=== PATIENT | female | born 1955 | race Caucasian/White ===

== ENCOUNTER → 2016-11-08 | Outpatient (CLI) | payer BC | LOC: MC.RAD 08:20 | DX: Z12.31 Encounter for screening mammogram for malignant neoplasm of breast (principal) ==

== ENCOUNTER → 2018-07-21 | Outpatient (CLI) | payer BC | LOC: MC.RAD 10:45 | DX: Z12.31 Encounter for screening mammogram for malignant neoplasm of breast (principal) ==

== ENCOUNTER → 2018-08-27 | Outpatient (CLI) | payer BC ==
[2018-08-27 13:01] LABS: CREATININE, serum 0.91 (0.52-1.25)
== END ==
LOC: COL.LAB 11:40
PROVIDERS: Psychiatry & Neurology Neurology
DX: R53.1 Weakness (principal); R29.2 Abnormal reflex

== ENCOUNTER 2018-09-09 12:20 | Outpatient (CLI) | payer BC ==
[~2018-09-09] VITALS: Ht 162.6 cm; Wt 77.4 kg
[2018-09-09] VITALS (8 sets, daily range): BP systolic 92–136; BP diastolic 53–88; PULSE 81–99; TEMP 98
[~2018-09-09 12:20] MED LIST: ADIPEX-P37.5 MG PO; LIPITOR20 MG PO; PRINZIDE 25 MG-1 TAB PO; SYNTHROID0.137 MG PO; ZANTAC 150MG T150 MG PO; ZYRTEC 10MG10 MG PO
--- NOTE | 2018-09-09 13:35 | NUR ---
Pt to EU cubby per cart s/p LP. Pt resting well.
[2018-09-09 14:03] LABS: GLUCOSE,CSF 61 mg/dL (40-70); TOTAL PROTEIN,CSF 61 mg/dL (15-45)
[2018-09-09 14:09] LABS: CSF APPEARANCE CLEAR; CSF COLOR COLORLESS; CSF POLYMORPHONUCLEAR 0 % (0-6); CSF RBC 1 /mm3 (0-0)
[2018-09-09 14:10] LABS: CSF MONONUCLEAR 100 % (70-100)
--- NOTE | 2018-09-09 15:40 | NUR ---
Pt has ambulated, voided and nelia PO intake s n/v.
--- NOTE | 2018-09-09 16:00 | NUR ---
Pt discharged per w/c by nurse with .
== END 2018-09-09 16:43 | disposition home or self-care (01) ==
LOC: COL.RAD 12:20
PROVIDERS: Psychiatry & Neurology Neurology
DX: G37.9 Demyelinating disease of central nervous system, unspecified (principal)

== ENCOUNTER 2018-12-11 08:45 | Outpatient (RCR) | payer BC | END 2018-12-17 | disposition home or self-care (01) | LOC: WSOT | DX: G35 Multiple sclerosis (principal) ==

== ENCOUNTER 2019-01-20 15:45 | Outpatient (RCR) | payer BC | END 2019-01-21 | disposition home or self-care (01) | LOC: WSC | DX: G35 Multiple sclerosis (principal); R29.898 Other symptoms and signs involving the musculoskeletal system ==

== ENCOUNTER 2019-03-10 12:45 | Outpatient (RCR) | payer BC | END 2019-03-24 | disposition home or self-care (01) | LOC: WSOT | DX: G35 Multiple sclerosis (principal) ==

== ENCOUNTER 2019-05-14 11:15 | Outpatient (RCR) | payer BC | END 2019-08-03 | disposition home or self-care (01) | LOC: WSPT | DX: R53.1 Weakness (principal) ==

== ENCOUNTER 2019-05-20 11:00 | Outpatient (RCR) | payer BC | END 2019-06-24 | LOC: MKS.ESL.OT | DX: M62.81 Muscle weakness (generalized) (principal); G35 Multiple sclerosis ==

== ENCOUNTER → 2019-09-23 | Outpatient (CLI) | payer BC | LOC: COL.RAD 10:27 | DX: S09.90XD Unspecified injury of head, subsequent encounter (principal); W19.XXXA Unspecified fall, initial encounter; R90.82 White matter disease, unspecified ==

== ENCOUNTER 2020-01-31 16:36 | Inpatient (IN) | payer BC ==
[~2020-01-31] VITALS: Ht 160 cm; Wt 71.8 kg
[2020-01-31] MEDS ORDERED: CELEXA 20MG20 MG/TAB PO (17:17)
[2020-01-31] MEDS ORDERED: RANEXA 500MG T500 MG PO (17:18)
[2020-01-31 17:19] LABS: ALBUMIN 4.6 gm/dL (3.5-5.0); BILIRUBIN,TOTAL 0.9 mg/dL (0.0-1.0); CALCIUM 9.6 mg/dL (8.4-10.2); CREATININE, serum 0.8 (0.52-1.25); POTASSIUM 3.7 mmol/L (3.4-5.0); TOTAL PROTEIN 7.2 gm/dL (6.4-8.2)
[2020-01-31] MEDS ORDERED: LIORESAL 1010 MG/TAB PO ×3 (17:19→21:41)
[2020-01-31] MEDS ORDERED: NUEDEXTA 20 MG-1 CAP PO (17:20)
[2020-01-31 17:21] LABS: BASO % 0.3 % (0.0-2.0); EOS % 0.1 % (0-4.0); GRAN # 5.4 (1.4-6.5); GRAN % 62.8 % (42.2-75.2); HEMATOCRIT 39.9 % (37.0-47.0); HEMOGLOBIN 13.6 g/dl (12.5-16.0); LYMPH # 2.6 (1.2-3.4); LYMPH % 30.5 % (20.0-51.0); MEAN CELL VOLUME 89 fl (80.0-100.0); MEAN CORPUSCULAR HEMOGLOBIN 30 pg (27.0-31.0); MEAN CORPUSCULAR HGB CONC 34 g/dl (33.0-37.0); MEAN PLATELET VOLUME 10.4 fl (7.4-10.4); MONO # 0.5 (0.1-0.6); MONO % 6.1 % (1.7-9.3); PLATELET COUNT 317 K/mm3 (130-400); RED BLOOD COUNT 4.47 M/mm3 (4.10-5.30); REDCELL DISTRIBUTION WIDTH-CV 12.4 % (11.5-14.5)
[2020-01-31 18:39] LABS: MUCOUS Present /lpf; PH 5 (5-8); SQUAMOUS EPITHELIAL 0-2 /hpf; URINE APPEARANCE Clear; URINE BACTERIA None Seen /hpf; URINE BILIRUBIN Positive (NEGATIVE); URINE BLOOD Negative (NEGATIVE); URINE COLOR Amber; URINE GLUCOSE Negative (NEGATIVE); URINE KETONE Trace (NEGATIVE); URINE LEUKOCYTE ESTERASE Negative (NEGATIVE); URINE NITRATE Negative (NEGATIVE); URINE PROTEIN(semi-quant) 1+ (NEGATIVE); URINE RBC 0-2 /hpf; URINE UROBILINOGEN Negative (NEGATIVE); URINE WBC 0-2 /hpf
[2020-01-31 18:56] LABS: COLLECTION METHOD CATHETER
[2020-01-31 23:45] VITALS: BP 113/58; PULSE 74; TEMP 98.2
--- NOTE | 2020-02-01 00:31 | NUR ---
Patient up from ED on stretcher. Patient moaning and yelling out in pain. Patient's baclofen from home given per orders. Morphine given per orders. 5 page completed with . Fluids running at 125ml/hr. Patient cleaned up and repositioned. Patient still moaning in pain.
[2020-02-01 03:43] VITALS: BP 113/58; PULSE 74; TEMP 98.2
--- NOTE | 2020-02-01 05:36 | NUR ---
Patient is asleep and seems more comfortable.
[2020-02-01 05:55] VITALS: BP 72/37; PULSE 59; TEMP 98.5
[2020-02-01 06:42] LABS: BASO % 0.5 % (0.0-2.0); EOS % 0.2 % (0-4.0); GRAN # 3.5 (1.4-6.5); GRAN % 54.7 % (42.2-75.2); LYMPH # 2.4 (1.2-3.4); LYMPH % 36.9 % (20.0-51.0); MEAN CELL VOLUME 91 fl (80.0-100.0); MEAN CORPUSCULAR HGB CONC 33 g/dl (33.0-37.0); MEAN PLATELET VOLUME 10.8 fl (7.4-10.4); MONO # 0.5 (0.1-0.6); MONO % 7.4 % (1.7-9.3); PLATELET COUNT 235 K/mm3 (130-400); RED BLOOD COUNT 3.68 M/mm3 (4.10-5.30); REDCELL DISTRIBUTION WIDTH-CV 12.5 % (11.5-14.5)
[2020-02-01 06:43] LABS: HEMATOCRIT 33.4 % (37.0-47.0); HEMOGLOBIN 11.1 g/dl (12.5-16.0); MEAN CORPUSCULAR HEMOGLOBIN 30 pg (27.0-31.0)
[2020-02-01 06:53] LABS: CALCIUM 8.8 mg/dL (8.4-10.2); CREATININE, serum 0.75 (0.52-1.25); POTASSIUM 3.2 mmol/L (3.4-5.0)
[2020-02-01 07:29] VITALS: BP 89/56; PULSE 59; TEMP 98.3
--- NOTE | 2020-02-01 09:05 | NUR ---
UPON ENTRY TO THE ROOM THE PATIENT IS RESTING QUIETLY IN BED. SHIFT ASSESSMENT COMPLETED. BLOOD PRESSURE IS SOFT, OTHERWISE VSS. PATIENT IS ABLE TO ANSWER SOME YES/NO QUESTIONS. WHEN PATIENTS SOCKS WERE REMOVED FOR HER SHIFT ASSESSMENT THE PATIENT TENSED UP AND BEGAN TO HAVE SPASTIC ACTIVITY.
--- NOTE | 2020-02-01 10:30 | NUR ---
THIS NURSE REVIEWED PATIENT FAMILY HISTORY AND SUICIDE SCREENING ASSESSMENT WITH PATIENTS GHAZALA. GHAZALA DENIES THAT THE PATIENT HAS HAD ANY HISTORY OF DEPRESSION OR SUICIDAL TENDENCIES. PATIENT IS CURRENTLY RESTING IN BED ASLEEP. POTASSIUM REPLACEMENT VIA IV.
--- NOTE | 2020-02-01 11:08 | NUR ---
500 ML IV FLUID BOLUS STARTED PER EVY BAR ORDERS.
[2020-02-01 11:10] VITALS: BP 130/95; PULSE 82; TEMP 98.5
--- NOTE | 2020-02-01 11:25 | NUR ---
ONE TIME DOSE OF IV TORADOL GIVEN AT THIS TIME PER ORDERS. IV FLUID BOLUS INFUSING. SPEECH THERAPIST PRESENT AT THE BEDSIDE. PATIENT GRUNTING AND SCREAMING IN PAIN. WILL CONTINUE TO MONITOR.
--- NOTE | 2020-02-01 11:49 | NUR ---
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 LUIS ANGEL contacted the patient's , Avelino, to discuss discharge plan. The patient lives in [place] with her . Avelino reports that the patient is wheelchair bound. She has a standard wheelchair, motorized wheelchair, a cane, and walker. She needs assistance with ADLs. Avelino reports that he helps her with her ADLs and that the patient also has home health services from [facility] for PT/OT/snf. LUIS ANGEL contacted and confirmed services from [facility] at [facility]. LUIS ANGEL faxed updates to [facility]. The patient's PCP is Dr. Steve Caruso and she receives her medications from [facility]. Avelino reports no difficulties obtaining her meds. The patient does not have a DPOA-HC. Avelino reports that they would be interested in obtaining a DPOA-HC form. LUIS ANGEL placed the DPOA-HC form in the patient's room. Avelino reports that plan is for the patient to return back home with him upon discharge and resume home health services from [facility]. Avelino was interested in obtaining a list of the different agencies that provide private duty services. LUIS ANGEL placed a list of the different private duty agencies with their phone numbers in the patient's room. LUIS ANGEL to continue to follow.
--- NOTE | 2020-02-01 13:53 | NUR ---
CALLED AND NOTIFIED THAT THE PATIENTS HAS ARRIVED AND IS CURRENTLY IN THE PATIENTS ROOM.
--- NOTE | 2020-02-01 15:30 | NUR ---
EVY BAR NOTIFIED THAT THE PATIENT CONTINUES TO SCREAM AND BE IN SEVERE DISCOMFORT DESPITE RECEIVING PO BACLOFEN, IV MORPHINE AND IV ATIVAN.
--- NOTE | 2020-02-01 15:48 | NUR ---
CALLED AND NOTIFED OF CONSULT FOR PEG TUBE PLACEMENT.
[2020-02-01 16:04] VITALS: BP 114/74; PULSE 7; PULSE 73; TEMP 99.2
[2020-02-01 19:24] VITALS: BP 130/70; PULSE 73; TEMP 98.8
--- NOTE | 2020-02-01 19:25 | NUR ---
REPORT GIVEN TO ONCOMING NURSE.
[2020-02-02] VITALS (14 sets, daily range): BP systolic 122–152; BP diastolic 69–78; PULSE 65–94; TEMP 97.9–99.4
--- NOTE | 2020-02-02 04:39 | NUR ---
PT STARTED THIS SHIFT WITH HER AT HER SIDE. WAS GIVEN ATIVAN 0.5 MG AND MORPHINE 1MG. RESTS QUIETLY AFTER MEDICINE. TAKES HER PO MEDS AT HS CRUSHED AND IN APPLESAUCE. NORCO GIVEN SHORTLY AFTER MIDNIGHT. STARTED SCREAMING AROUND 3;20, REPEATED ATIVAN AND MORPHINE. COOL CLOTH TO WIPE FACE AND PILLOW REMOVED FROM LEFT SIDE. PILLOWS PLACED UNDER bilat arms. RESTING QUIETLY. WILL CONTINUE TO MONITOR AND REPOSITION. CALL LIGHT NEXT TO PT HAND AND BED ALARM ON.
[2020-02-02 08:21] LABS: BASO % 0.4 % (0.0-2.0); EOS % 0.7 % (0-4.0); GRAN # 3.3 (1.4-6.5); GRAN % 59.8 % (42.2-75.2); HEMOGLOBIN 11.1 g/dl (12.5-16.0); LYMPH # 1.8 (1.2-3.4); LYMPH % 31.9 % (20.0-51.0); MEAN CELL VOLUME 92 fl (80.0-100.0); MEAN CORPUSCULAR HEMOGLOBIN 31 pg (27.0-31.0); MEAN CORPUSCULAR HGB CONC 33 g/dl (33.0-37.0); MEAN PLATELET VOLUME 10.6 fl (7.4-10.4); MONO # 0.4 (0.1-0.6); PLATELET COUNT 212 K/mm3 (130-400); RED BLOOD COUNT 3.62 M/mm3 (4.10-5.30); REDCELL DISTRIBUTION WIDTH-CV 12.7 % (11.5-14.5)
[2020-02-02 08:27] LABS: CALCIUM 8.6 mg/dL (8.4-10.2); CREATININE, serum 0.73 (0.52-1.25); POTASSIUM 3.9 mmol/L (3.4-5.0)
[2020-02-02 08:28] LABS: HEMATOCRIT 33.3 % (37.0-47.0)
--- NOTE | 2020-02-02 10:00 | NUR ---
Patient alert, but does not respond to questions. See assessment. Continously yells out. Pain medications, ativan and valium given per orders.
--- NOTE | 2020-02-02 10:36 | NUR ---
Pablo Allen and Nikhil here to see patient.
--- NOTE | 2020-02-02 11:25 | NUR ---
Attempted to call anesthesia with update prior to procedure regarding patients medications shes received this a.m, no answer.
--- NOTE | 2020-02-02 11:26 | NUR ---
To surgery with surgical staff at this time.
--- NOTE | 2020-02-02 14:25 | NUR ---
Several visit attempts; Recoating Machine Operator left prayer card and information regarding the availability of spiritual care at our hospital.
--- NOTE | 2020-02-02 19:45 | NUR ---
Pt. laying in bed at this time. Pt. is confused and cries out to painful stimuli. Pt. does not verbally communicate with this nurse. Shift assessment complete. IV to lt. wrist patent, IV fluids infusing per orders. Peg tube to lt. abd. noted with CDI gauze dressing. Medications given through peg tube at this time. No residual withdrawn from peg tube, meds given without complications. Pt. given pain meds per FLACC scale. Call light within reach, will monitor.
[2020-02-03 03:48] VITALS: BP 137/75; PULSE 81; TEMP 98.5
[2020-02-03 06:28] LABS: BASO % 0.2 % (0.0-2.0); EOS # 0.1 (0.0-0.7); GRAN # 4.1 (1.4-6.5); GRAN % 67.3 % (42.2-75.2); HEMOGLOBIN 10.4 g/dl (12.5-16.0); LYMPH # 1.4 (1.2-3.4); LYMPH % 23.3 % (20.0-51.0); MEAN CELL VOLUME 93 fl (80.0-100.0); MEAN CORPUSCULAR HEMOGLOBIN 30 pg (27.0-31.0); MEAN CORPUSCULAR HGB CONC 33 g/dl (33.0-37.0); MEAN PLATELET VOLUME 10.6 fl (7.4-10.4); MONO # 0.5 (0.1-0.6); MONO % 7.7 % (1.7-9.3); PLATELET COUNT 178 K/mm3 (130-400); RED BLOOD COUNT 3.43 M/mm3 (4.10-5.30); REDCELL DISTRIBUTION WIDTH-CV 12.8 % (11.5-14.5)
[2020-02-03 06:31] LABS: ALBUMIN 2.9 gm/dL (3.5-5.0); CALCIUM 8.1 mg/dL (8.4-10.2); CREATININE, serum 0.66 (0.52-1.25); POTASSIUM 3.4 mmol/L (3.4-5.0)
[2020-02-03 06:37] LABS: HEMATOCRIT 31.8 % (37.0-47.0)
[2020-02-03 07:44] VITALS: BP 115/60; PULSE 77; TEMP 98.2
[2020-02-03 10:53] LABS: MAGNESIUM 1.4 mg/dL (1.6-2.3); PHOSPHOROUS 3.2 mg/dL (2.5-4.5)
[2020-02-03 12:00] VITALS: BP 112/72; PULSE 71; TEMP 98.4
--- NOTE | 2020-02-03 15:17 | NUR ---
The patient had a peg tube placed and is starting feedings today. She will need enteral feedings when she goes home. LUIS ANGEL contacted the patient's to review d/c plan. SW discussed home with home health vs SNF. The patient's , Otto, and their daughter report that they checked into [facility] for SNF, but that they have decided to pursue with taking the patient home. Otto reports that he would like to try things at home and that he feels comfortable with administering the feedings and continuing [facility]. Otto was agreeable to getting the feedings frome [facility]. LUIS ANGEL updated the clinical team. The patient is to tentatively d/c on Saturday, 02/04. LUIS ANGEL collaborated with the mattress specialist, Bibiana, and obtained the Enteral Feeding Order Form. LUIS ANGEL contacted and faxed the Enteral Feeding order to [facility]. LUIS ANGEL contacted and updated Caleb at [facility]. Caleb reports that they are able to continue services for the patient. Caleb states that he is checking to make sure they an RN go out and visit the patient and her on Saturday. SW to continue to follow.
[2020-02-03 16:00] VITALS: BP 145/81; PULSE 86; TEMP 98
--- NOTE | 2020-02-03 16:31 | NUR ---
Radha, at [facility], reports that the patient's insurance ([employer]) does not cover feedings, but it will for the supplies. She estimates that the patient and will have an out of pocket cost around $202.50. Radha also emailed LUIS ANGEL a physician order request form that needs to be signed by the hospitalist. LUIS ANGEL to present this to the hospitalist. LUIS ANGEL contacted and updated the patient's , Otto. Otto verbalized understanding and was agreeable to private pay for the feedings.
--- NOTE | 2020-02-03 17:39 | NUR ---
Left voicemail for Dr Enriquez to notify of consult.
[2020-02-03 19:37] VITALS: BP 145/76; PULSE 90; TEMP 98.2
--- NOTE | 2020-02-03 20:00 | NUR ---
Report received, assumed care for cage shift manager.Assessment complete. Alert-yelling out/diaphoretic/grimacing. Assumed pain present and morphine given per dr order. Repositioned in bed. Noted to have +2 edema to both lower and upper extremitites. IV to right wrist with NS@75ml/hr-infusing without difficulty. Will continue to monitor.
--- NOTE | 2020-02-03 22:30 | NUR ---
Assume pain present-yelling out/grimacing/diaphoretic. [place] one tab given per dr order via peg tube.
--- NOTE | 2020-02-03 23:00 | NUR ---
150MLS FREE WATER VIA PEG TUBE DURING MEDICATION ADMIN
[2020-02-04] VITALS (7 sets, daily range): BP systolic 100–146; BP diastolic 46–69; PULSE 69–112; TEMP 97.4–99.7
--- NOTE | 2020-02-04 04:31 | NUR ---
O2 saturation drops into the mid 80s during sleeping. O2 applied at 1L/OM-O2 saturations maintaining 93-95%. Continues to rest with eyes closed-audible snore. Will monitor.
--- NOTE | 2020-02-04 05:00 | NUR ---
Dose of valium held at 0400 given at this time. Awake and yelling out-O2 saturation maintaining at 96-98% on room air. Will monitor.
--- NOTE | 2020-02-04 05:25 | NUR ---
Continues to yell [id number]. Assumed pain present-morphine 1mg given per dr order. Repositioned in [id number] elevated 30 degrees. Heel protectors placed. O2 saturation maintaining at 96-98% on room air. Will monitor.
[2020-02-04 06:33] LABS: BASO % 0.2 % (0.0-2.0); EOS # 0.1 (0.0-0.7); EOS % 1.4 % (0-4.0); GRAN # 4.4 (1.4-6.5); GRAN % 68.7 % (42.2-75.2); HEMOGLOBIN 10.9 g/dl (12.5-16.0); LYMPH # 1.3 (1.2-3.4); LYMPH % 20.8 % (20.0-51.0); MEAN CELL VOLUME 91 fl (80.0-100.0); MEAN CORPUSCULAR HEMOGLOBIN 31 pg (27.0-31.0); MEAN CORPUSCULAR HGB CONC 34 g/dl (33.0-37.0); MEAN PLATELET VOLUME 10.5 fl (7.4-10.4); MONO # 0.6 (0.1-0.6); MONO % 8.6 % (1.7-9.3); PLATELET COUNT 174 K/mm3 (130-400); RED BLOOD COUNT 3.56 M/mm3 (4.10-5.30); REDCELL DISTRIBUTION WIDTH-CV 12.5 % (11.5-14.5)
[2020-02-04 06:35] LABS: HEMATOCRIT 32.3 % (37.0-47.0)
[2020-02-04 06:49] LABS: ALBUMIN 2.9 gm/dL (3.5-5.0); BILIRUBIN,TOTAL 0.7 mg/dL (0.0-1.0); CALCIUM 8.1 mg/dL (8.4-10.2); CREATININE, serum 0.53 (0.52-1.25); MAGNESIUM 1.9 mg/dL (1.6-2.3); POTASSIUM 3.7 mmol/L (3.4-5.0)
--- NOTE | 2020-02-04 07:08 | NUR ---
PT SLEEPING IN BED AT BEDSIDE SHIFT REPORT. OXYMASK IN PLACE, BED IN LOW.
--- NOTE | 2020-02-04 11:07 | NUR ---
PT TOLERATED TUBE FEEDING THIS AM WELL. DID ONE BOLUS OF 125 TO MAKE SURE IT WAS TOLERATED. MEDICATIONS CLOGGED UP TUBING AND HAD TO FLUSH OUT WITH 7-UP. PT MOANING/SCREAMING OUT FREQUENTLY TODAY. PT VERY DIAPHORETIC. CONTINUING TO ATTEMPT TO KEEP HER COMFORTABLE, WITH REPOSITIONING, COLD TOWELS, FREQUENT INCONTINENCE CHECKS.
--- NOTE | 2020-02-04 14:33 | NUR ---
PERMISSION GRANTED BY DIDIER RICHARDSON FOR TO VISIT FOR LIMITED TIME THIS AFTERNOON SO HE CAN VISUALIZE AND HER CONDITION AND COMFORT . CONTINUE TO DISUCUSS PALLIATIVE CARE OPTIONS WITH AND HOPING THIS VISIT WILL MAKE THE SITUATION MORE CLEAR. PT CONTINUES TO SCREAM FREQUENTLY AND IS CONTINUING TO BE CHECKED AND TURNED Q2 HOURS.
--- NOTE | 2020-02-04 15:12 | NUR ---
LUIS ANGEL was called by [facility] that family had contacted their facility wanting to see if patient could transition there for skilled services. LUIS ANGEL called Otto [phone] to inquire about a family member reaching out to facility for services. Otto stated that he had reached out to find out if patient could obtain services. LUIS ANGEL informed Otto that documentation will be faxed to facility for their review. Facility staff stated they would like to be contacted in the morning in regards to patient status and discharge plan. LUIS ANGEL called patient's nurse to inform of the information stated. Nurse provided that their has been an exception made for spouse to come and visit patient to see how she is doing. Nurse provided that it is looking more like palliative care will be recommended. LUIS ANGEL will continue to follow.
--- NOTE | 2020-02-04 17:33 | NUR ---
PT RECIEVED PRN MORPHINE 3 TIMES TODAY WELL AN TWO PRN ATIVAN AND A NORCO. NOTHING SEEMS TO BE EFFECTIVE IN RELIEVING HER SCREAMING OUT. TOLERATED FULL JEVITY 1.[address] THAPA AND DAVEY CREWS SPOKE WITH TODAY. SW UPDATED THAT THEY ARE LOOKING AT [facility] BED AND AWAITING IF THEY WILL ACCEPT. Q2 TURNNING CONTINUED INCONTINENCE CARE PROVIDED, HEELS FLOATING, FAN AND COLD RAG FOR DIAPHORESIS.
--- NOTE | 2020-02-04 19:54 | NUR ---
NOTIFIED ROSINA ARMSTRONG NOTIFIED OF LBM DOCUMENTED 01/29. ABD FIRM. BS HYPO ACTIVE. SEE NEW ORDERS. ROSINA REQUESTED TO TEXT HER MESSAGES THAT ARE NOT EMERGENT TO HER CELL PHONE.
--- NOTE | 2020-02-04 20:00 | NUR ---
PT RESTING IN BED. ALS W/SEVERE SPASICITY. PT SCREAMS OUT MOST OF THE TIME. DIAPHORECTIC. HAS FAN ON IN ROOM. CHANGED GOWN AND TOWEL UNDER HEAD AND AXILLA. WASHED FACE. PT UNABLE TO SPEAK. PT FULL CODE. REPOSITIONED TO LT SIDE. YELLS OUT. BED ALARM SET.
--- NOTE | 2020-02-05 01:07 | NUR ---
PERIODICALLY YELLS OUT. NO RESULTS FROM SUPP YET.
--- NOTE | 2020-02-05 01:45 | NUR ---
IV TO LT WRIST. INFILTRATED. ATTEMPTED X 3RNS TO RESTART. STARTED LT F/A W/G. SEMAR FOR ATIVAN GIVEN.
--- NOTE | 2020-02-05 03:57 | NUR ---
PT CONTINUALLY YELLING OUT. NONCOMMUNICATIVE. SEE MAR FOR NORCO AND SCHEDULED VALIUM GIVEN. PT HAS NOT SLEPT FOR ANY LENGTH OF TIME.
[2020-02-05 04:34] VITALS: BP 116/63; PULSE 103; TEMP 98.7
--- NOTE | 2020-02-05 04:44 | NUR ---
JOLLY GUTIÉRREZ RED POSSIBLE YEAST. NOTIFIED ROSINA ARMSTRONG.
--- NOTE | 2020-02-05 05:55 | NUR ---
PT HAD MED LOOSE THICK BROWN INCONTINENT BM. AFTER CLEANING PT UP, PT IS NOW RESTING WELL AT THIS TIME.
--- NOTE | 2020-02-05 06:00 | NUR ---
PT SCREAMING OUT AGAIN. HAS HAD VERY LITTLE SLEEP.
--- NOTE | 2020-02-05 06:59 | NUR ---
PT AWAKE IN BED AT BEDSIDE SHIFT REPORT. CHANGED AND REPOSITIONED PER NURSE AROUND 5:30. PT AWAKE AND SCREAMING THIS AM.
[2020-02-05 07:43] LABS: CALCIUM 8.6 mg/dL (8.4-10.2); CREATININE, serum 0.51 (0.52-1.25); POTASSIUM 3.6 mmol/L (3.4-5.0)
[2020-02-05 08:00] VITALS: BP 122/60; PULSE 104; TEMP 98.6
[2020-02-05 11:55] VITALS: BP 100/80; PULSE 85; TEMP 98.1
--- NOTE | 2020-02-05 14:50 | NUR ---
The patient's RN notified LUIS ANGEL that the patient's daughter is here and would like to speak to LUIS ANGEL about their options and that family may be considering hospice. LUIS ANGEL met with the patient's daughter, Jose (ph#[phone]). Jose reports that after seeing and being with the patient, the patient's would not be able to provide care for the patient in their home. She states that they are considering SNF/LTC vs hospice right now. Jose was interested in the options for hospice, if they did pursue comfort care. LUIS ANGEL informed her of the hospice house, hospice at a facility, and hospice at home. Jose reports that she will talk to her father geoff about the options. She states that they would be interested in [facility] or [facility] if they decide to continue treatment and the [facility] if they decide comfort measures. Jose was agreeable for LUIS ANGEL to send referrals to the facilities. Julita at [facility] had received a referral on the patient yesterday. LUIS ANGEL updated Julita. LUIS ANGEL contacted and faxed a referral to [facility] and the [facility]. Chelsea, social media marketing analyst at the hospice [facility], reports that she will reach out to the daughter to answer any questions she has. LUIS ANGEL to continue to follow.
[2020-02-05 15:54] VITALS: BP 96/58; PULSE 91; TEMP 99.3
--- NOTE | 2020-02-05 17:21 | NUR ---
Luda, at [facility], reports that the patient's insurance ([employer]) is closed for the day and that they will still need to get in contact with them to get auth and to see if she has any skilled benefits. Luda reports that if the patient's family were to decide to come to them and they would like to come over the weekend, they could accept, but it would be private pay.
--- NOTE | 2020-02-05 17:52 | NUR ---
PT'S DAUGHTER VISITED TODAY TO SEE CONDITION AND HELP MAKE DECISION ABOUT NEXT LEVEL OF CARE. PT CONTINUED TO BE VOCAL TODAY WITH SCREAMING BUT WAS NOT VOCAL YESTERDAY DUE TO EXHAUSTION. CONTINUES TO TOLERATE TUBE FEEDINGS WELL. TWO BM'S TODAY, NO SKIN ISSUES OTHER THEN ORAL CARE WHICH CANNOT BE DONE BECAUSE PT CLAMPS JAW SHUT. AIR MATTRESS APPLIED TODAY, CONTINUE WITH HEEL PROTECTORS.
[2020-02-05 19:41] VITALS: BP 104/58; PULSE 95; TEMP 98.8
--- NOTE | 2020-02-05 21:00 | NUR ---
PEG TUBE SITE WITGH OLD BLOODY DRAINAGE. CLEANED SITE AND PLACED NEW GAUZE. SITE W/O REDNESS. CHECKED FORPLACEMENT. RESIDUAL WAS 60CC. MOUTHCARE WITH SUCTION COMPLETED. DESENEX TO GROIN AND LOTION TO BACK. PT REMAINS IN SPASICITY. BILAT HANDS SWOLLEN. WASHCLOTHS PLACED IN PALMS. ELEVATED ON PILLOWS. PT DIAPHORETIC MOST OF THE TIME. WASHED FACE FREQUENTLY AND CHANGED NEEDED LINENS ON OCCASION. WEARS LOOSE DIAPERS FOR INCONT. ATTEMPTING TO MAKE PT COMFORTABLE POSSIBLE. STILL SCREAMS OUT MOST OF THE TIME. CALL LIGHT IN REACH. BED ALARM SET.
[2020-02-05 23:28] VITALS: BP 86/48; PULSE 87; TEMP 98.1
[2020-02-06] VITALS (7 sets, daily range): BP systolic 97–131; BP diastolic 58–77; PULSE 77–108; TEMP 97.8–99.6
--- NOTE | 2020-02-06 03:51 | NUR ---
PT CONTINUALLY SCREAMS OUT. COMFORT CARES PROVIDED. MOUTHCARE, TURNS, INCONTINENT CARES. SEE MAR FOR PRN MEDICATIONS GIVEN.
[2020-02-06 06:09] LABS: CALCIUM 8.5 mg/dL (8.4-10.2); CREATININE, serum 0.47 (0.52-1.25); POTASSIUM 4.2 mmol/L (3.4-5.0)
--- NOTE | 2020-02-06 10:05 | NUR ---
am meds given, am tube feeding held for residual greater than 60 mls. Provided personal cares. pt appears comfotable. not yelling out resting quietly. Updated on pt status.
--- NOTE | 2020-02-06 12:35 | NUR ---
GREATER THAN 60 MLS RESIDUAL FEEDING HELD. PAIN MEDS GIVEN AND PRN MEDS GIVEN.
--- NOTE | 2020-02-06 13:30 | NUR ---
[facility]TR called to find out if [facility] accepted. SW called [facility] and did not get an answer. Family is still wanting to know if she could be accepted to SNF. Educated on hospice statues. WIll contiue to follow.
--- NOTE | 2020-02-06 15:14 | NUR ---
MORE THAN 60 MLS RESIDUAL
--- NOTE | 2020-02-06 20:31 | NUR ---
CONTINUES SCREAMING OUT. MUSCLES RIGID. BILAT HANDS SWOLLEN. MS IV GIVEN SEE MAR. PEG TUBE SITE W/O DRAINAGE. INCONTINENT OF BOWEL AND BLADDER. HOB ELEVATED. ATTEMPTING TO MAKE PT COMFORTABLE POSSIBLE.
--- NOTE | 2020-02-06 21:09 | NUR ---
CALLED FOR PT STATUS. NO CHANGE. PT STILL STILL SCREAMIN OUT.
--- NOTE | 2020-02-07 02:42 | NUR ---
PT SLEEPING NOW. NO RESP DISTRESS.
[2020-02-07 04:00] VITALS: BP 105/67; PULSE 104; TEMP 97.8
--- NOTE | 2020-02-07 05:08 | NUR ---
PT AWAKE NOW SCREAMING. CLEANED UP INCONTINENT DARK ALVERTO URINE. REPOSITIONED WITH ARMS ELEVATED. WASHED FACE. TF FEEDING COMPLETE. PT ODELL WELL. NO RESIDUAL. BED ALARM ON. CALL LIGHT AT BEDSIDE.
[2020-02-07 07:13] VITALS: BP 161/100; PULSE 107; TEMP 100.5
--- NOTE | 2020-02-07 10:00 | NUR ---
Patient non responsive, moans and cries out frequently. See assessment. 2+ edema noted to bilateral hands. PEG tube in place to LUQ, no redness or drainage noted at site. Abdomen soft, non tender, non distended. Patients extremeties remain in tense position. FLACC
[2020-02-07 10:55] VITALS: BP 94/52; PULSE 85; TEMP 101
--- NOTE | 2020-02-07 12:11 | NUR ---
feed elevator worker spoke with Livia at [facility] and confirmed that they will not admit patient to skilled care. Worker spoke with daughter, Jose, and provided the above information and also information on skilled care requirements and that patient does not have insurance coverage for room and board in any facility. Jose states that they have the cost for hospice house and that her father will reach out to Tania, provider, as has some final questions to ask before they consider Hospice. Jose stated that their family will make a decision and notify social service technician today and is aware of planned discharge tomorrow. Jose is familiar with the [facility] [place] as an option. Worker contacted hospice house and confirmed that they have openings today and tomorrow and has the referral for patient. We will need to confirm with Dr Caruso that he would follow patient at the hospice house if this is family decision. Worker spoke with Dr Romero regarding the above information.
--- NOTE | 2020-02-07 12:20 | NUR ---
LUIS ANGEL was called by [facility] staff providing that they would like documentation to review for patient due to daughter's request. LUIS ANGEL faxed documenation to [facility]. LUIS ANGEL will continue to follow.
[2020-02-07 13:00] LABS: BASO % 0.2 % (0.0-2.0); GRAN # 4.9 (1.4-6.5); GRAN % 74.9 % (42.2-75.2); HEMATOCRIT 32.3 % (37.0-47.0); HEMOGLOBIN 10.9 g/dl (12.5-16.0); LYMPH % 14.8 % (20.0-51.0); MEAN CELL VOLUME 91 fl (80.0-100.0); MEAN CORPUSCULAR HEMOGLOBIN 31 pg (27.0-31.0); MEAN CORPUSCULAR HGB CONC 34 g/dl (33.0-37.0); MEAN PLATELET VOLUME 10.3 fl (7.4-10.4); MONO # 0.6 (0.1-0.6); MONO % 9.8 % (1.7-9.3); PLATELET COUNT 255 K/mm3 (130-400); RED BLOOD COUNT 3.55 M/mm3 (4.10-5.30); REDCELL DISTRIBUTION WIDTH-CV 12.9 % (11.5-14.5)
[2020-02-07 13:08] LABS: CALCIUM 8.3 mg/dL (8.4-10.2); CREATININE, serum 0.45 (0.52-1.25); POTASSIUM 3.4 mmol/L (3.4-5.0)
[2020-02-07 15:15] VITALS: BP 108/60; PULSE 97; TEMP 99.7
[2020-02-07 18:29] LABS: COLLECTION METHOD CATHETER
[2020-02-07 18:43] LABS: MUCOUS Present /lpf; PH 7 (5-8); URINE APPEARANCE Clear; URINE BACTERIA None Seen /hpf; URINE BILIRUBIN Negative (NEGATIVE); URINE BLOOD Negative (NEGATIVE); URINE COLOR Amber; URINE GLUCOSE 1+ (NEGATIVE); URINE KETONE Negative (NEGATIVE); URINE LEUKOCYTE ESTERASE Trace (NEGATIVE); URINE NITRATE Negative (NEGATIVE); URINE PROTEIN(semi-quant) 2+ (NEGATIVE); URINE RBC 0-2 /hpf; URINE UROBILINOGEN >=4.0 mg/dL (NEGATIVE)
[2020-02-07 20:20] VITALS: BP 117/78; PULSE 108; TEMP 101
--- NOTE | 2020-02-07 20:36 | NUR ---
NOTIFIED JM CHIU OF PT'S FEVER OF 101.0AX. SEE NEW ORDERS.
--- NOTE | 2020-02-07 20:45 | NUR ---
TYLENOL GIVEN FOR TEMP.
[2020-02-07 23:55] VITALS: BP 105/47; PULSE 90; TEMP 99.3
--- NOTE | 2020-02-08 03:36 | NUR ---
WASHED PT'S FACE. PROVIDED SUCTION & MOUTHCARE. HOB REMAINS UP 30 DEGREES. PT HAS BEEN TURNED APPROXIMATELY EVERY 2HR. RT HAND REMAINS EDEMATOUS +2-+3. ELEVATED HIGH ON PILLOWS. NO BM THIS SHIFT. PT HAS BEEN RESTING BETTER TONIGHT. NOT MUCH SCREAMING OUT. HEEL PROTECTORS IN PLACE. GAVE 150CC H20 TWICE THIS SHIFT PER PEG.
[2020-02-08 04:30] VITALS: BP 132/67; PULSE 99; TEMP 100
--- NOTE | 2020-02-08 05:34 | NUR ---
PT AWAKE SCREAMING OUT. TEMP 100.0 AX AT 0430. TYLENOL GIVEN JUST PRIOR TO THAT. ABD SOFT. PEG TUBE W/MINIMAL RESIDUAL. JEVITY 1 CARTON GIVEN. ATIVAN GIVEN.- SEE MAY.
[2020-02-08 07:25] LABS: ALBUMIN 3.3 gm/dL (3.5-5.0); BILIRUBIN,TOTAL 0.9 mg/dL (0.0-1.0); CALCIUM 8.6 mg/dL (8.4-10.2); CREATININE, serum 0.52 (0.52-1.25); MAGNESIUM 1.9 mg/dL (1.6-2.3); PHOSPHOROUS 3.1 mg/dL (2.5-4.5); POTASSIUM 4.5 mmol/L (3.4-5.0); TOTAL PROTEIN 5.9 gm/dL (6.4-8.2)
[2020-02-08 07:31] LABS: PRE ALBUMIN 5.6 mg/dL (17.6-36.0)
--- NOTE | 2020-02-08 08:00 | NUR ---
Patient resting in bed at this time. Patient is relaxed and calm in appearance but cries out frequently with no other indications of pain. When interaction is attempted patient does not open her eyes or respond in any way. Administered PRN and scheduled medications per order, patient continues to cry out often. Patient was changed, bedding was changed, and patient was repositioned. Call light within reach, bed alarm on, frequent visual checks.
[2020-02-08 08:40] VITALS: BP 152/75; PULSE 108; TEMP 100.6
[2020-02-08] MEDS ORDERED: ZOFRAN ODT4 MG PO (11:40)
[2020-02-08] MEDS ORDERED: FENTANYL 25 MCG TD (11:41)
[2020-02-08] MEDS ORDERED: ROXANOL 20MG20 MG/ML PO (11:42)
[2020-02-08] MEDS ORDERED: VALIUM 2MG T2 MG/TAB PO (11:43)
[2020-02-08] MEDS ORDERED: ATIVAN 0.50.5 MG/TAB PO (11:45)
[2020-02-08 12:10] VITALS: BP 152/75; PULSE 108; TEMP 100.6
--- NOTE | 2020-02-08 12:30 | NUR ---
EMS arrived to transport patient to [facility] [address]. Administered PRN pain and anxiety medications to keep patient comfortable during transport. Patient belongings and medication gathered and transported with patient. Attempted to call report and recieved no answer, left a message with callback number, will reattempt later.
--- NOTE | 2020-02-08 13:45 | NUR ---
LUIS ANGEL contacted the patient's daughter, Jose, to follow up on decision for hospice vs SNF. Jose reports that they have decided to pursue hospice at the hospice house. LUIS ANGEL notified the clinical team and Derik at [facility]. Derik reports that they are still waiting on auth from insurance, but she has a 2 1/2-3 hour wait time to speak to the insurance. She states that [place] has hospice benefits built it, but she just does not know what the patient's plan will look like. She states that they can go ahead and move forward with taking the patient today, if the patient's family is okay with this. LUIS ANGEL updated the patient's daughter, Jose. Jose is okay with moving forward to the hospice house, before hearing back from insurance. LUIS ANGEL then contacted and updated the patient's , Avelino. Avelino would still like to hear from the patient's PCP and Dr. Mtz on whether there is anything else that can be done for the patient's back. LUIS ANGEL notified the hospitalist and the hospitalist attempted to make contact with Dr. Mtz. Avelino would still like to move forward with the patient going to the hospice house and was agreeable to her going there today. He states that if there was something more that they could do for the patient's back, then they might take her out of hospice. The patient is to discharge today, 02/07, to the [facility]. Transportation was scheduled at 1230, via [facility]. LUIS ANGEL notified Derik at the hospice house, the RN, and the patient's via phone. They were all agreeable to the time. LUIS ANGEL also read the EMS Transfer Consent Forms outloud to the patient's over the phone. The patient's verbalized understanding and gave LUIS ANGEL approval to sign the form on his behalf. No additional needs at this time.
== END 2020-02-08 12:30 | disposition hospice, inpatient (51) | DRG 56 ==
LOC: COL.ER 16:36 → SURG 20:06
PROVIDERS: Hospitalist; Internal Medicine; Nurse Practitioner Family; Nurse Practitioner Primary Care; Physician Assistant; Surgery; ADMIT Student in an Organized Health Care Education/Training Program
PROC: 0DH63UZ Insertion of Feeding Device into Stomach, Percutaneous Approach (ICD-10-PCS; principal; 2020-02-02 14:15)
DX: G12.21 Amyotrophic lateral sclerosis (principal); J69.0 Pneumonitis due to inhalation of food and vomit; R65.10 Systemic inflammatory response syndrome (SIRS) of non-infectious origin without acute organ dysfunction; E87.2 Acidosis; R13.10 Dysphagia, unspecified; E86.0 Dehydration; I95.9 Hypotension, unspecified; I10 Essential (primary) hypertension; E16.2 Hypoglycemia, unspecified; Z66 Do not resuscitate; E78.5 Hyperlipidemia, unspecified; E03.9 Hypothyroidism, unspecified; Z20.828 Contact with and (suspected) exposure to other viral communicable diseases; E87.6 Hypokalemia; Z90.710 Acquired absence of both cervix and uterus; Z85.828 Personal history of other malignant neoplasm of skin
CPT/HCPCS: 99232-AI; 99233-AI; 99239; G0378; J1650; J1885; J2060; J2270; J2543; J2704; J3360; J3475; J3480; J7030; J7040; Q9967